=== PATIENT | female | born 1960 | race Caucasian/White ===

== ENCOUNTER → 2019-04-20 | Outpatient (CLI) | payer BC, OTHER ==
--- NOTE | 2019-04-24 10:38 | MM ---
Reason for exam: screening (asymptomatic). Last mammogram was performed 3 years and 6 months ago. History: Patient is postmenopausal. Physical Findings: A clinical breast exam by your physician is recommended on an annual basis and results should be correlated with mammographic findings. MG Screening Mammo w CAD Bilateral CC and MLO view(s) were taken. Prior study comparison: October 08, 2015, bilateral MG screening mammo w CAD. March 17, 2011, bilateral screening mammogram free. The breast tissue is heterogeneously dense. This may lower the sensitivity of mammography. There is no discrete abnormality. ASSESSMENT: Negative, BI-RAD 1 RECOMMENDATION: Routine screening mammogram of both breasts in 1 year.
== END | disposition home or self-care (01) ==
LOC: RADMAMWWP 12:51
PROVIDERS: ATTEND Obstetrics & Gynecology
DX: Z12.31 Encounter for screening mammogram for malignant neoplasm of breast (principal)
CPT/HCPCS: 77067

== ENCOUNTER 2023-05-18 09:48 | Day surgery (SDC) | payer OTHER ==
[~2023-05-18 09:48] MED LIST: LACTATED RINGERS 1,000 ML IV SCH; LIDOCAINE 1% (10MG/ML) FOR IV START INTRADERMA PRN
[2023-05-18 11:13] VITALS: TEMP 97.5
[2023-05-18] MEDS ORDERED: PROPOFOL 10 MG/ML 20 ML VIAL IV ONE (12:38)
[2023-05-18] MEDS ORDERED: IV FLUID CONTINUATION 1,000 ML IV ONE (13:00)
--- NOTE | 2023-05-18 13:00 | P.PCN ---
Date of Procedure: 05/18/23 Procedure(s) Performed: BRIEF HISTORY: Patient is a 62-year-old pleasant white female scheduled for an elective colonoscopy as a part of screening for colon cancer and positive cologuard. PROCEDURE PERFORMED: Colonoscopy. With snare polypectomy and Endo Clip placement. PREOPERATIVE DIAGNOSIS: Screening for colon cancer/positivecologuard IV sedation per Anesthesia. PROCEDURE: After informed consent was obtained, the patient, was brought into the endoscopy unit. IV sedation was administered by Anesthesia under continuous monitoring. Digital rectal examination was normal. Initially the Olympus CF-160 flexible video colonoscope was then inserted in the rectum, gradually advanced into the cecum without any difficulty. Careful examination was performed as the scope was gradually being withdrawn. Ileocecal valve and the appendiceal orifice were visualized and appeared normal. Prep was excellent. Mucosa of the cecum, 2.5 cm broad-based polyp that was removed by piecemeal snare polypectomy followed by Endo Clip placement. In the hepatic flexure there was a 3 cm polyp that was removed by piecemeal snare polypectomy. Mucosa of the ascending colon, transverse colon, descending colon, sigmoid colon, and rectum appeared normal. Retroflexion was performed in the rectum and weight 2 internal hemorrhoids. were seen. The patient tolerated the procedure well. IMPRESSION: 2.5 cm broad-based cecal polyp status post piecemeal snare polypectomy followed by Endo Clip placement 3 cm broad-based hepatic flexure polyp status post piecemeal snare polypectomy Rest of the colon appeared normal Grade 2 internal hemorrhoids. RECOMMENDATIONS: Findings of this examination were discussed with the patient as well as her family. She was advised to follow with the biopsy results. She'll be seen in office in 2 weeks. If the biopsy results adenoma she can have a repeat colonoscopy in 6 months.
[2023-05-18 13:39] VITALS: BP 143/86; PULSE 67; RESP 16
== END 2023-05-18 13:41 | disposition home or self-care (01) ==
LOC: ORWHC2ENDO 09:48
PROVIDERS: ATTEND Internal Medicine Gastroenterology
DX: Z12.11 Encounter for screening for malignant neoplasm of colon (principal); D12.0 Benign neoplasm of cecum; D12.3 Benign neoplasm of transverse colon; R19.5 Other fecal abnormalities; K64.1 Second degree hemorrhoids; M19.90 Unspecified osteoarthritis, unspecified site; Z87.891 Personal history of nicotine dependence
CPT/HCPCS: 88305; 45382; 45385; J2704

== ENCOUNTER → 2024-08-28 | Outpatient (CLI) | payer OTHER ==
--- NOTE | 2024-08-28 10:24 | MM ---
Reason for Exam: Screening (asymptomatic). Last mammogram was performed 2 year(s) and 10 month(s) ago. Patient History: Menarche at age 13. First Full-Term at age 26. Postmenopausal. Patient has history of breast feeding. Risk Values: Dee 5 year model risk: 1.7%. NCI Lifetime model risk: 7.4%. Prior Study Comparison: 03/17/2011 Bilateral Screening Mammogram, [facility]. 10/08/2015 Bilateral Screening Mammogram, [facility]. 04/20/2019 Bilateral Screening Mammogram, [facility]. 10/08/2021 Bilateral Screening Mammogram, [facility]. Tissue Density: The breasts are heterogeneously dense, which may obscure small masses. Findings: Analyzed By CAD. There is no suspicious group of microcalcifications or new suspicious mass in either breast. Overall Assessment: Negative, BI-RAD 1 Management: Screening Mammogram of both breasts in 1 year. . Patient should continue monthly self-breast exams. A clinical breast exam by your physician is recommended on an annual basis. This exam should not preclude additional follow-up of suspicious palpable abnormalities. Note on Dee scores and lifetime risk: 1. A Dee score greater than 3% is considered moderate risk. If this is the case, consider specialist referral to assess eligibility for a risk reducing agent. 2. If overall lifetime risk for the development of breast cancer is 20% or higher, the patient may qualify for future screening with alternating mammogram and breast MRI. [facility], , 08/28/2024 10:21 AM. Electronically signed and approved by: Audi Torres M.D. [facility]
== END | disposition home or self-care (01) ==
LOC: RADMAMWWP 09:21
PROVIDERS: ATTEND Family Medicine
DX: Z12.31 Encounter for screening mammogram for malignant neoplasm of breast (principal); R92.333 Mammographic heterogeneous density, bilateral breasts; Z78.0 Asymptomatic menopausal state
CPT/HCPCS: 77063; 77067